=== PATIENT | female | born 1970 | race Caucasian/White ===

== ENCOUNTER 2016-05-02 20:23 | Emergency (ER) | payer OTHER ==
[2016-05-02 21:03] LABS: BASOPHIL 0.1 % (0-2); EOSINOPHIL 0.1 % (0-5); HCT 41.6 % (37.0-47.0); HGB 14.2 g/dl (12.5-16.0); LYMPHOCYTE 5.9 % (15-48); MCH 31.7 pg (25.0-31.0); MCHC 34.1 g/dL (32.0-36.0); MCV 92.9 fL (78.0-100.0); MONOCYTE 4.7 % (0-12); MPV 10.2 fL (6.0-9.5); NEUTROPHIL 89.2 % (41-80); PLT 203 K/uL (150-400); RBC 4.48 M/uL (4.20-5.40); RDW 13.8 % (11.5-14.0); WBC 7.6 K/uL (4.0-10.5)
[2016-05-02 21:24] LABS: ALBUMIN 4.4 g/dL (3.5-5.0); BILIRUBIN - TOTAL 0.3 mg/dL (0.1-1.0); CREATININE 0.7 mg/dL (0.5-1.0); GLOBULIN (CALCULATION) 2.6 g/dL (2.2-4.2); POTASSIUM 3.3 mmol/L (3.5-5.1)
[2016-05-02 23:10] LABS: BILIRUBIN NEGATIVE (NEGATIVE); BLOOD 3+ Ery/uL (NEGATIVE); CLARITY CLEAR (CLEAR); COLOR YELLOW (YELLOW); GLUCOSE (U) NORMAL (NORMAL); KETONE (U) NEGATIVE (NEGATIVE); LEUKOCYTES TRACE Leu/uL (NEGATIVE); NITRITE NEGATIVE (NEGATIVE); PROTEIN NEGATIVE (NEGATIVE); UROBILINOGEN 0.2 mg/dL (0.2-1.0)
[2016-05-02 23:20] LABS: BACTERIA TRACE; URINARY WBC RARE
[2016-05-02 23:21] LABS: AMORPHOUS URATES CRYSTALS TRACE
== END 2016-05-03 00:33 | disposition home or self-care (01) ==
LOC: FER 20:23
PROVIDERS: Nurse Practitioner Family
DX: R10.84 Generalized abdominal pain (principal); R11.0 Nausea; R19.7 Diarrhea, unspecified; R00.0 Tachycardia, unspecified; J44.9 Chronic obstructive pulmonary disease, unspecified; F17.210 Nicotine dependence, cigarettes, uncomplicated; Z87.19 Personal history of other diseases of the digestive system; Z90.49 Acquired absence of other specified parts of digestive tract; Z98.890 Other specified postprocedural states
CPT/HCPCS: 36415; 80053; 81001; 82150; 83605; 83690; 85025; 93005; J1170; J2405

== ENCOUNTER 2016-07-28 16:34 | Emergency (ER) | payer OTHER ==
[2016-07-28 18:25] LABS: BASOPHIL 0.5 % (0-2); EOSINOPHIL 0.5 % (0-5); HGB 13.7 g/dl (12.5-16.0); LYMPHOCYTE 21.1 % (15-48); MCH 32.3 pg (25.0-31.0); MCHC 35.1 g/dL (32.0-36.0); MONOCYTE 5.3 % (0-12); MPV 10.2 fL (6.0-9.5); NEUTROPHIL 72.6 % (41-80); PLT 240 K/uL (150-400); RBC 4.24 M/uL (4.20-5.40); RDW 14.9 % (11.5-14.0); WBC 11.4 K/uL (4.0-10.5)
[2016-07-28 18:35] LABS: INR 0.96 (0.9-1.2); PROTHROMBIN TIME 12.4 SECONDS (11.7-14.0)
== END 2016-07-28 19:35 | disposition home or self-care (01) ==
LOC: FER 16:34
PROVIDERS: Emergency Medicine
DX: R04.0 Epistaxis (principal); J44.9 Chronic obstructive pulmonary disease, unspecified; F31.9 Bipolar disorder, unspecified; F17.210 Nicotine dependence, cigarettes, uncomplicated; Z87.19 Personal history of other diseases of the digestive system; Z83.2 Family history of diseases of the blood and blood-forming organs and certain disorders involving the immune mechanism
CPT/HCPCS: 36415; 85025; 85610; 85730; J1170; J2060; J2270; J2405

== ENCOUNTER 2016-07-30 11:06 | Emergency (ER) | payer OTHER ==
[2016-07-30 11:50] LABS: BASOPHIL 0.3 % (0-2); EOSINOPHIL 0.3 % (0-5); HCT 31.6 % (37.0-47.0); HGB 10.7 g/dl (12.5-16.0); MCH 31.6 pg (25.0-31.0); MCHC 33.9 g/dL (32.0-36.0); MCV 93.2 fL (78.0-100.0); MONOCYTE 4.9 % (0-12); MPV 10.3 fL (6.0-9.5); NEUTROPHIL 76.5 % (41-80); PLT 236 K/uL (150-400); RBC 3.39 M/uL (4.20-5.40); WBC 11.8 K/uL (4.0-10.5)
[2016-07-30 12:09] LABS: INR 0.96 (0.9-1.2); PROTHROMBIN TIME 12.4 SECONDS (11.7-14.0); PTT 26.4 SECONDS (23.2-31.4)
[2016-07-30 12:17] LABS: CREATININE 0.7 mg/dL (0.5-1.0); POTASSIUM 3.6 mmol/L (3.5-5.1)
== END 2016-07-30 12:19 | disposition home or self-care (01) ==
LOC: FER 11:06
PROVIDERS: Internal Medicine
DX: R04.0 Epistaxis (principal); I10 Essential (primary) hypertension; F17.200 Nicotine dependence, unspecified, uncomplicated
CPT/HCPCS: 36415; 80048; 85025; 85610; 85730